=== PATIENT | female | born 2005 | race Hispanic/Latino ===

== ENCOUNTER 2025-05-18 00:20 | Emergency (ER) | payer MEDICAID ==
[~2025-05-18] VITALS: Ht 144.8 cm; Wt 61.2 kg
[2025-05-18] MEDS: LACTATED RINGERS 1000ML IV STA (00:52)
[2025-05-18 00:56] LABS: IMMATURE GRANULOCYTE ABSOLUTE 0.01 K/uL (0-1); NUCLEATED RED BLOOD CELLS 0.0 % (0.0-0.19); PLATELET COUNT (AUTO) 153 K/uL (130-400); RED BLOOD CELL COUNT(AUTO) 4.48 MIL/uL (4.00-5.50); RED CELL DISTRIBUTION WIDTH 12.6 % (11.0-15.5); WHITE BLOOD COUNT (AUTO) 6.7 K/uL (4.8-10.8)
[2025-05-18 01:03] LABS: CREATININE 0.6 mg/dL (0.5-1.0); GLOMERULAR FILTR. RATE CALC 132.0 mL/min (>90); GLUCOSE,RANDOM 95.0 mg/dL (70-105); SODIUM SERUM 135.0 mmol/L (136-145); UREA NITROGEN, BLOOD 9.0 mg/dL (7-18)
--- NOTE | 2025-05-18 01:29 | ERN ---
General Chief Complaint: Vaginal Bleeding Stated Complaint: VAGINAL BLEEDING Time Seen by MD: 00:23 Source: patient History of Present Illness Initial Comments 20-year-old female who week ago was evaluated by her floating operator who noted a six week . She saw her floating operator this week and the age of the was five weeks so she was expecting a miscarriage and today she had a large amount of vaginal bleeding with passage of her developing fetus. (She is showing me a picture on her camera.) She comes to the emergency room here because she was experiencing sudden weakness and lightheadedness. She has had to change her pad 3 times in the last hour. Allergies: Coded Allergies: latex (Unverified Allergy, Unknown, 05/18/25) Past Medical History Past Medical History: No Pertinent History Past Surgical History: None Female( History) LMP: Mar 26, 2025 : 3 Para: 1 Aborts: 1 Constitutional: (-) chills, (-) diaphoresis, (-) fever, (-) malaise, (-) weakness, (-) other documentation EENTM: (-) eye pain, (-) blurred vision, (-) tearing, (-) double vision, (-) ear pain, (-) ear discharge, (-) nose pain, (-) nose congestion, (-) throat pain, (-) Throat swelling, (-) mouth pain, (-) tooth pain, (-) mouth swelling, (-) other documentation Respiratory: (-) cough, (-) orthopnea, (-) short of breath, (-) stridor, (-) wheezing, (-) other documentation Cardiovascular: (-) chest pain, (-) edema, (-) palpitations, (-) syncope, (-) dyspnea on exertion, (-) other documentation Gastrointestinal/Abdominal: (-) nausea, (-) vomiting, (-) diarrhea, (-) abdominal pain, (-) abdominal distention, (-) constipation, (-) rectal bleeding, (-) dark stool/melena, (-) other documentation Genitourinary: (-) vaginal discharge, (-) vaginal bleeding, (-) dysuria, (-) frequency, (-) hematuria, (-) pain, (-) other documentation Musculoskeletal: (-) Neck pain, (-) back pain, (-) Flank Pain, (-) joint pain, (-) joint swelling, (-) muscle pain, (-) muscle stiffness, (-) gout, (-) other documentation Skin: (-) laceration, (-) contusion, (-) abrasion, (-) abscess, (-) rash, (-) change in color, (-) change in hair, (-) change in nails, (-) diaphoresis, (-) dryness, (-) other documentation Neuro: (+) weakness, (+) dizziness Physical Exam General Appearance: (+) mild distress Orientation: (+) alert, (+) oriented x 3 Head/Face Trauma: No Eye: bilateral eye normal inspection, bilateral eye PERRL, bilateral eye EOMI Ear, Nose, Throat: (+) hearing grossly normal, (+) normal ENT inspection, (+) moist mucous membraine Neck: (+) normal inspection, (+) supple, (+) full range of motion Respiratory: (+) chest non-tender, (+) lungs clear, (+) well ventilated Heart: (+) regular, (+) no gallop, (+) murmur Vascular: (+) no edema, (+) normal peripheral pulse, (+) no JVD Gastrointestinal: (+) soft, (+) non-tender, (+) bowel sound present Results Laboratory and Microbiology Lab and Micro Result Laboratory Tests Test 05/18/25 00:41 White Blood Count 6.7 K/uL (4.8-10.8) Red Blood Count 4.48 MIL/uL (4.00-5.50) Hemoglobin 13.9 g/dL (12.0-16.0) Hematocrit 40.9 % (36-48) Mean Corpuscular Volume 91.3 fL (80-100) Mean Corpuscular Hemoglobin 31.0 pg (27.0-33.0) Mean Corpuscular Hemoglobin Concent 34.0 g/dL (32.0-36.0) Red Cell Distribution Width 12.6 % (11.0-15.5) Platelet Count 153 K/uL (130-400) Mean Platelet Volume 12.9 fL (7.5-10.5) H Immature Granulocyte % (Auto) 0.1 % (0-1) Neutrophils (%) (Auto) 50.6 % (40.0-77.0) Lymphocytes (%) (Auto) 40.6 % (21.0-51.0) Monocytes (%) (Auto) 5.2 % (3.0-13.0) Eosinophils (%) (Auto) 2.8 % (0.0-8.0) Basophils (%) (Auto) 0.7 % (0.0-5.0) Neutrophils # (Auto) 3.4 K/uL (1.8-7.7) Lymphocytes # (Auto) 2.7 K/uL (1.0-4.8) Monocytes # (Auto) 0.4 K/uL (0.1-1.0) Eosinophils # (Auto) 0.19 K/uL (0.00-0.70) Basophils # (Auto) 0.05 K/uL (0.00-0.20) Absolute Immature Granulocyte (auto 0.01 K/uL (0-1) Nucleated Red Blood Cells 0.0 % (0.0-0.19) Sodium Level 135 mmol/L (136-145) L Potassium Level 3.8 mmol/L (3.5-5.1) Chloride Level 102 mmol/L (101-111) Carbon Dioxide Level 26 mmol/L (21-32) Blood Urea Nitrogen 9 mg/dL (7-18) Creatinine 0.6 mg/dL (0.5-1.0) Glomerular Filtration Rate Calc 132 mL/min (>90) Random Glucose 95 mg/dL (70-105) Total Calcium 8.6 mg/dL (8.5-10.1) Human Chorionic Gonadotropin, Quant 6748 mIU/mL (0-5) H MDM I will send off for a quantitative HCG level as well as an H and H. in addition we will get a ultrasound and monitor in the ED for further bleeding. Ultrasound transvaginal shows no intrauterine . Does show a thin endometrial stripe 0.7 cm, Patient's hemoglobin is normal patient states that for bleeding is slowing down she feels comfortable going home. She will have her with her and they can come back quickly if the bleeding persists or becomes dangerous. ED Course Orders Procedure Category Date Status Time Cbc With Differential LAB 05/18/25 Complete 00:38 Basic Metabolic Panel LAB 05/18/25 Complete 00:38 Hcg,Quantitative LAB 05/18/25 Complete 00:38 Lactated Ringers PHA 05/18/25 Complete 1000ml (Lactated 00:38 Us Ob Transvaginal US 05/18/25 Taken 00:38 Current Medications Medications (Trade) Dose Ordered Sig/Pat Route PRN Reason Start Time Stop Time Status Last Admin Dose Admin Lactated Ringer's (Lactated Ringers 1000ml) 1,000 ml BOLUS STAT IV 05/18/25 00:38 05/18/25 00:43 DC 05/18/25 00:52 Vital Signs Date Time Temp Pulse Resp B/P (MAP) Pulse Ox O2 Delivery O2 Flow Rate FiO2 05/18/25 00:59 98.1 67 16 109/57 99 Room Air* 0 21 05/18/25 00:22 97.9 70 18 118/66 100 Room Air DX & DISP Disposition: Discharge Departure Impression: Primary Impression: Miscarriage Additional Impression: Complete miscarriage Condition: Stable Additional Instructions: You have had a miscarriage. Our ultrasound shows no intrauterine . Your bleeding has slowed down. Your red blood cell mass is normal. I think it is safe for you to go home please return to the hospital if your bleeding gets worse or if you start to feel anemic. Referrals: SELF,REFERRAL (PCP) TARSHA MELGAR MD May 18, 2025 01:29
--- NOTE | 2025-05-18 02:21 | HMCIMG ---
EXAM: US OB, transabdominal, Complete. CLINICAL HISTORY: vag bleeding after spontaneous TECHNIQUE: Transabdominal pelvic ultrasound (complete) with image documentation. Patient refused a transvaginal scan. COMPARISON: None provided. FINDINGS: LMP is 03/19/2025, corresponding to 8 weeks, 4 days of gestational age. ENDOMETRIUM: Normal thickness (0.7cm). UTERUS/CERVIX: The uterus appears within normal limits (measures 8.4 x 5.1 x 5.4 cm). No uterine fibroid or other mass evident. No intrauterine gestation sac or parts were seen at the time of scan. RIGHT OVARY: There appears to be normal Doppler flow on transabdominal images. No abnormal mass. It measures 1.9 x 2.0 x 2.1 cm. LEFT OVARY: There appears to be normal Doppler flow on transabdominal images. No abnormal mass. It measures 2.3 x 1.4 x 1.9 cm. FREE FLUID: No free fluid. IMPRESSION: Negative examination. No evidence of an intrauterine gestational sac in the current scan. Unremarkable endometrium. Recommend serial quantitative beta-hCG and short interval follow-up. /Juan José
[2025-05-18 02:40] VITALS: BP 105/58; PULSE 62; RESP 16; TEMP 98.3; O2SAT 100
== END 2025-05-18 02:41 | disposition home or self-care (01) ==
LOC: EDH 00:20
DX: O03.9 Complete or unspecified spontaneous abortion without complication (principal); R42 Dizziness and giddiness; R53.1 Weakness; Z91.040 Latex allergy status; Z3A.01 Less than 8 weeks gestation of pregnancy
CPT/HCPCS: 99284; 80048; 84702; 36415; 85025; 76817; J7120